=== PATIENT | female | born 1990 | race Caucasian/White ===

== ENCOUNTER 2020-10-11 16:54 | Emergency (ER) | payer SELFPAY ==
[~2020-10-11] VITALS: Ht 167.6 cm; Wt 60.9 kg
[2020-10-11 16:55] VITALS: BP 112/61
== END 2020-10-11 21:04 | disposition left against medical advice (07) ==
LOC: M ED 16:54
DX: Z53.29 Procedure and treatment not carried out because of patient's decision for other reasons (principal)

== ENCOUNTER 2021-02-07 08:14 | Emergency (ER) | payer OTHER, SELFPAY ==
[2021-02-07] MEDS ORDERED: ACETAMINOPHEN TAB 650MG DOSE (2X325MG) PO ONE (08:40)
[2021-02-07 09:36] LABS: BASO % 0.4 % (0.0-1.0); EOS % 0.8 % (0.0-3.0); HEMOGLOBIN 11.4 g/dl (12.0-15.5); LYMPH # 1.7 10^3/uL (1.5-5.0); LYMPH % 33.6 % (24.0-44.0); MEAN CORPUSCULAR HEMOGLOBIN 29.4 pg (27.0-33.0); MEAN CORPUSCULAR HGB CONC 33.5 g/dl (32.0-36.5); MEAN CORPUSCULAR VOLUME 87.6 fl (80.0-96.0); MONO # 0.4 10^3/uL (0.0-0.8); MONO % 7.8 % (2.0-8.0); NEUTROPHILS # 2.9 10^3/uL (1.5-8.5); NEUTROPHILS % 57.4 % (36.0-66.0); PLATELET COUNT, AUTOMATED 287 10^3/uL (150-450); RED BLOOD COUNT 3.88 10^6/uL (4.00-5.40)
[2021-02-07] MEDS ORDERED: [UNRECOGNIZED DRUG - REMARK] (10:59)
[2021-02-07 11:06] LABS: AMORPHOUS SEDIMENT SMALL (NEGATIVE); APPEARANCE, URINE CLOUDY (CLEAR); BACTERIA, URINE AUTO 1+ (NEGATIVE); BILIRUBIN, URINE AUTO NEGATIVE (NEGATIVE); BLOOD, URINE BLOOD 2+ (NEGATIVE); COLOR, URINE AMBER (YELLOW); GLUCOSE, URINE (UA) AUTO NEGATIVE (NEGATIVE); KETONE, URINE AUTO TRACE mg/dL (NEGATIVE); LEUKOCYTE ESTERASE, URINE AUTO 1+ (NEGATIVE); MUCUS, URINE LARGE (NEGATIVE); NITRITE, URINE AUTO NEGATIVE (NEGATIVE); PROTEIN, URINE AUTO 1+ mg/dL (NEGATIVE); RBC, URINE AUTO 1 /HPF (0-3); SQUAMOUS EPITHELIAL CELL UR AU 11 /HPF (0-6); WBC, URINE AUTO 8 /HPF (0-3)
[2021-02-07 11:15] VITALS: BP 119/65
[2021-02-07 12:41] LABS: GC DNA AMPLIFICATION NEGATIVE (NEGATIVE)
[2021-02-07] MEDS ORDERED: METR-265 PO (16:39)
== END 2021-02-07 11:15 | disposition home or self-care (01) ==
LOC: M ED 08:14
DX: O20.9 Hemorrhage in early pregnancy, unspecified (principal); U07.1 COVID-19; Z3A.01 Less than 8 weeks gestation of pregnancy; O98.511 Other viral diseases complicating pregnancy, first trimester

== ENCOUNTER → 2021-10-24 | Outpatient (CLI) | payer BC ==
[~2021-10-24] MED LIST: METR-265 PO; [UNRECOGNIZED DRUG - REMARK]
== END ==
LOC: M WHC 08:12
PROVIDERS: ATTEND Physician Assistant
DX: Z36.89 Encounter for other specified antenatal screening (principal); Z3A.01 Less than 8 weeks gestation of pregnancy

== ENCOUNTER → 2021-12-01 | Outpatient (CLI) | payer OTHER, MEDICAID | LOC: M WHC 13:06 | PROVIDERS: ATTEND Advanced Practice Midwife | DX: O20.0 Threatened abortion (principal) ==